=== PATIENT | female | born 1985 | race Asian ===

== ENCOUNTER 2017-05-01 00:28 | Inpatient (IN) | payer SELFPAY ==
[~2017-05-01] VITALS: Ht 158 cm; Wt 65.0 kg
[2017-05-01] MEDS ORDERED: OXYTOCIN/NORMAL SALINE 1,000 ML IV SCH (01:03)
[2017-05-01] MEDS ORDERED: LR 1,000 ML IV SCH (01:03)
[2017-05-01] MEDS ORDERED: LR 1,000 ML IV ONE (01:03)
[2017-05-01] MEDS ORDERED: TERBUTALINE SULFATE 1 MG/ML VIAL SUBCUT ONE (01:15)
[2017-05-01] MEDS ORDERED: NALBUPHINE HCL 10 MG/ML AMP IVP PRN (01:15)
[2017-05-01] MEDS ORDERED: NALBUPHINE HCL 10 MG/ML AMP IM PRN (01:15)
[2017-05-01 01:50] LABS: RED CELL DISTRIBUTION WIDTH 14.1 % (9.0-15.0)
[2017-05-01 01:55] LABS: HEMATOCRIT 38.3 % (36-48); MEAN CORPUSCULAR HEMOGLOBIN 32 pg (27-31); MEAN CORPUSCULAR HGB CONC 34 % (32-36); MEAN CORPUSCULAR VOLUME 96 fL (79.0-98.0); PLATELET COUNT (AUTO) 185 K/uL (130-430); RED BLOOD CELL COUNT(AUTO) 4.01 MIL/uL (4.2-6.2); WHITE BLOOD COUNT (AUTO) 11.6 K/uL (4.8-10.8)
[2017-05-01] MEDS ORDERED: AMPICILLIN SODIUM 2 GM in NS 100 ML IV ONE (02:00)
[2017-05-01 02:26] LABS: BAND % (MANUAL) 4 % (0-6); BASOPHILS % (MANUAL) 0 % (0-2); EOSINOPHILS % (MANUAL) 0 % (0-7); LYMPHOCYTES % (MANUAL) 29 % (20-46); MONOCYTES % (MANUAL) 9 % (0-11)
[2017-05-01] MEDS ORDERED: AMPICILLIN SODIUM 2 GM VIAL ONE (02:57)
[2017-05-01] MEDS ORDERED: FENT2mCg/mL-ROPIVA0.2%/NS EPID 150 ML EP ONE (03:02)
[2017-05-01] MEDS ORDERED: LR 500 ML IV ONE (03:23)
[2017-05-01] MEDS ORDERED: FENT2mCg/mL-ROPIVA0.2%/NS EPID 150 ML EP SCH (03:30)
[2017-05-01] MEDS ORDERED: ePHEDrine sulfate 50 MG/ML VIAL IVP PRN (03:30)
[2017-05-01 05:20] VITALS: BP_SYST 111
[2017-05-01] MEDS ORDERED: AMPICILLIN SODIUM 1 GM in NS 50 ML IV SCH (06:00)
[2017-05-01] MEDS ORDERED: AMPICILLIN SODIUM 1 GM VIAL ONE (06:01)
[2017-05-01] MEDS ORDERED: OXYTOCIN/NORMAL SALINE 1,000 ML IV ONE (09:03)
[2017-05-01] MEDS ORDERED: DOCUSATE SODIUM 100 MG CAPSULE PO PRN (09:15)
[2017-05-01] MEDS ORDERED: GLYCERIN/WITCH HAZEL (TUCKS PADS) TP PRN (09:15)
[2017-05-01] MEDS ORDERED: MEASLES,MUMPS&RUBELLA VACC/PF 12500 UNIT/0.5 ML VIAL SUBQ PRN (09:15)
[2017-05-01] MEDS ORDERED: ANUSOL 1 EA SUPP.RECT (PREPARATION H) RC PRN (09:15)
[2017-05-01] MEDS ORDERED: RHO(D) IMMUNE GLOBULIN/MALTOSE 1500 UNITS/1.3 ML (WINHRO) IM PRN (09:15)
[2017-05-01] MEDS ORDERED: DERMOPLAST SPRAY TP PRN (09:15)
[2017-05-01] MEDS ORDERED: METHYLERGONOVINE MALEATE 0.2 MG TABLET PO PRN (09:15)
[2017-05-01] MEDS ORDERED: HYDROCORTISONE 0.5%, 28.35 GM TOPICAL CREAM TP PRN (09:15)
[2017-05-01] MEDS ORDERED: SENNOSIDES/DOCUSATE SODIUM 1 TAB TABLET(SENOKOT-S) PO PRN (09:15)
[2017-05-01] MEDS ORDERED: LANOLIN 7 GM OINT. TP PRN (09:15)
[2017-05-01] MEDS: IBUPROFEN 600 MG TABLET PO SCH ×3 (12:57→23:58)
[2017-05-02] MEDS: IBUPROFEN 600 MG TABLET PO SCH ×4 (06:25→23:18)
[2017-05-02 06:42] LABS: HEMOGLOBIN 11.4 g/dL (12.0-16.0)
[2017-05-03] MEDS: IBUPROFEN 600 MG TABLET PO SCH ×2 (05:57→12:11)
[2017-05-03] MEDS ORDERED: DIPH-TET-PERTUS Vaccine 0.5 ML VIAL/Tdap (ADACEL) I.M. PRN (10:15)
== END 2017-05-03 16:15 | disposition home or self-care (01) | DRG 775 ==
LOC: SPU 00:28
PROVIDERS: ADMIT Obstetrics & Gynecology; ATTEND Obstetrics & Gynecology
PROC: 10D07Z6 Extraction of Products of Conception, Vacuum, Via Natural or Artificial Opening (ICD-10-PCS; principal; 2017-05-01)
PROC: 0W8NXZZ Division of Female Perineum, External Approach (ICD-10-PCS; 2017-05-01)
PROC: 3E0S3CZ (ICD-10-PCS; 2017-05-01)
PROC: 00HU33Z Insertion of Infusion Device into Spinal Canal, Percutaneous Approach (ICD-10-PCS; 2017-05-01)
PROC: 3E0134Z Introduction of Serum, Toxoid and Vaccine into Subcutaneous Tissue, Percutaneous Approach (ICD-10-PCS; 2017-05-01)
DX: O99.824 Streptococcus B carrier state complicating childbirth (principal); O64.0XX0 Obstructed labor due to incomplete rotation of fetal head, not applicable or unspecified; O66.5 Attempted application of vacuum extractor and forceps; Z3A.39 39 weeks gestation of pregnancy; Z37.0 Single live birth; Z23 Encounter for immunization
CPT/HCPCS: 36415; 81002-TC; 85007; 85018-TC; 85027; 86592; 86886; 86900; 86901; 90715; J0290; J2300; J2590; J3010